=== PATIENT | female | born 1970 | race Caucasian/White ===

== ENCOUNTER 2017-01-25 23:42 | Emergency (ER) | payer MEDICARE, OTHER ==
[~2017-01-25 23:42] MED LIST: APRESOLINE100 MG PO; INSULIN LISPRO; LEVOTHYROXINE112 MCG PO; LEXAPRO20 MG PO; NEURONTIN300 M1 PO; PROTONIX 40MG T40 MG PO; ZOCOR40 MG PO
== END 2017-01-26 00:25 | disposition home or self-care (01) ==
LOC: FER 23:42
DX: E10.65 Type 1 diabetes mellitus with hyperglycemia (principal); E10.22 Type 1 diabetes mellitus with diabetic chronic kidney disease; I13.10 Hypertensive heart and chronic kidney disease without heart failure, with stage 1 through stage 4 chronic kidney disease, or unspecified chronic kidney disease; N18.9 Chronic kidney disease, unspecified; Z88.1 Allergy status to other antibiotic agents; Z88.5 Allergy status to narcotic agent; Z79.899 Other long term (current) drug therapy; Z99.2 Dependence on renal dialysis; Z96.41 Presence of insulin pump (external) (internal)

== ENCOUNTER 2017-01-30 23:45 | Emergency (ER) | payer MEDICARE, OTHER ==
[2017-01-31 00:39] LABS: BASOPHIL 1.8 % (0-2); EOSINOPHIL 9.1 % (0-5); HCT 38.3 % (37.0-47.0); HGB 12.6 g/dl (12.5-16.0); LYMPHOCYTE 17.1 % (15-48); MCH 26.9 pg (25.0-31.0); MCHC 32.9 g/dL (32.0-36.0); MCV 81.7 fL (78.0-100.0); MONOCYTE 7.8 % (0-12); MPV 8.7 fL (6.0-9.5); NEUTROPHIL 64.2 % (41-80); PLT 199 K/uL (150-400); RBC 4.69 M/uL (4.20-5.40); RDW 17.4 % (11.5-14.0); WBC 6.3 K/uL (4.0-10.5)
[2017-01-31 00:49] LABS: INR 0.96 (0.9-1.2); PROTHROMBIN TIME 12.4 SECONDS (11.7-14.0)
[2017-01-31 00:50] LABS: PTT 32.6 SECONDS (23.2-31.4)
[2017-01-31 00:57] LABS: ALBUMIN 4.3 g/dL (3.5-5.0); BILIRUBIN - TOTAL 0.4 mg/dL (0.1-1.0); CREATININE 4.8 mg/dL (0.5-1.0); GLOBULIN (CALCULATION) 2.7 g/dL (2.2-4.2); MAGNESIUM 2.56 mg/dL (1.40-2.10); POTASSIUM 4.7 mmol/L (3.5-5.1)
[2017-01-31 01:03] LABS: MYOGLOBIN 245 ng/mL (26-65); TROPONIN T 0.011 ng/mL
[2017-01-31 01:05] LABS: AMPHETAMINES NEGATIVE (NEGATIVE); BARBITURATES NEGATIVE (NEGATIVE); BENZODIAZEPINES NEGATIVE (NEGATIVE); COCAINE NEGATIVE (NEGATIVE); MARIJUANA (THC) POSITIVE (NEGATIVE); METHADONE NEGATIVE (NEGATIVE); TRICYCLIC ANTIDEPRESSANT NEGATIVE (NEGATIVE)
[2017-01-31 01:08] LABS: CKMB 5.41 ng/mL (0.97-4.94); PRO-BNP > 35000 pg/mL (0-125)
[2017-01-31 06:51] LABS: CREATININE 5.1 mg/dL (0.5-1.0); POTASSIUM 4.9 mmol/L (3.5-5.1)
== END 2017-01-31 07:41 | disposition home or self-care (01) ==
LOC: FER 23:45
PROVIDERS: Emergency Medicine Emergency Medical Services
DX: E10.43 Type 1 diabetes mellitus with diabetic autonomic (poly)neuropathy (principal); K31.84 Gastroparesis; I44.7 Left bundle-branch block, unspecified; E86.9 Volume depletion, unspecified; E10.22 Type 1 diabetes mellitus with diabetic chronic kidney disease; I12.9 Hypertensive chronic kidney disease with stage 1 through stage 4 chronic kidney disease, or unspecified chronic kidney disease; N18.9 Chronic kidney disease, unspecified; I25.2 Old myocardial infarction; Z88.1 Allergy status to other antibiotic agents; Z88.5 Allergy status to narcotic agent; Z97.8 Presence of other specified devices; Z99.2 Dependence on renal dialysis
CPT/HCPCS: 36415; 71010; 80048; 80053; 80305; 82550; 82553; 83690; 83735; 83874; 83880; 84484; 85025; 85610; 85730; 93005; J1170; J2060

== ENCOUNTER 2017-05-27 17:32 | Emergency (ER) | payer MEDICARE, OTHER ==
[2017-05-27 18:17] LABS: BASOPHIL 0.1 % (0-2); EOSINOPHIL 0 % (0-5); HCT 43.5 % (37.0-47.0); HGB 13.7 g/dl (12.5-16.0); LYMPHOCYTE 6.2 % (15-48); MCH 27.5 pg (25.0-31.0); MCHC 31.5 g/dL (32.0-36.0); MCV 87.2 fL (78.0-100.0); MONOCYTE 6.7 % (0-12); MPV 11.2 fL (6.0-9.5); PLT 190 K/uL (150-400); RBC 4.99 M/uL (4.20-5.40); WBC 12.7 K/uL (4.0-10.5)
[2017-05-27 19:00] LABS: ALBUMIN 4.5 g/dL (3.5-5.0); BILIRUBIN - TOTAL 0.5 mg/dL (0.1-1.0); GLOBULIN (CALCULATION) 3.1 g/dL (2.2-4.2); POTASSIUM 5.5 mmol/L (3.5-5.1); TOTAL PROTEIN 7.6 g/dL (6.4-8.3)
[2017-05-27 19:21] LABS: INR 1.14 (0.9-1.2); PROTHROMBIN TIME 13.7 SECONDS (11.4-13.2); PTT 27.9 SECONDS (24.3-32.1)
[2017-05-27 20:14] LABS: BILIRUBIN NEGATIVE (NEGATIVE); BLOOD 2+ Ery/uL (NEGATIVE); CLARITY CLEAR (CLEAR); COLOR YELLOW (YELLOW); GLUCOSE (U) 3+ mg/dL (NORMAL); KETONE (U) 1+ (SMALL) mg/dL (NEGATIVE); LEUKOCYTES NEGATIVE Leu/uL (NEGATIVE); NITRITE NEGATIVE (NEGATIVE); PROTEIN 2+ mg/dL (NEGATIVE); SPECIFIC GRAVITY 1.015 (1.001-1.030); UROBILINOGEN 0.2 mg/dL (0.2-1.0); pH 7.5 (5.0-9.0)
[2017-05-27 20:21] LABS: BACTERIA TRACE
[2017-05-28 04:35] LABS: CREATININE 7.1 mg/dL (0.5-1.0); POTASSIUM 4.9 mmol/L (3.5-5.1)
== END 2017-05-28 06:47 | disposition other institution (70) ==
LOC: FER 17:32
PROVIDERS: Emergency Medicine
DX: K92.0 Hematemesis (principal); E72.51 Non-ketotic hyperglycinemia; R42 Dizziness and giddiness; M54.9 Dorsalgia, unspecified; F41.9 Anxiety disorder, unspecified; I12.9 Hypertensive chronic kidney disease with stage 1 through stage 4 chronic kidney disease, or unspecified chronic kidney disease; E10.22 Type 1 diabetes mellitus with diabetic chronic kidney disease; N18.9 Chronic kidney disease, unspecified; Z79.4 Long term (current) use of insulin; Z79.899 Other long term (current) drug therapy
CPT/HCPCS: 36415; 36600; 74022; 80048; 80053; 81001; 82271; 82803; 85025; 85610; 85730; C9113; J1170; J2405

== ENCOUNTER 2020-10-09 10:14 | Day surgery (SDCO) | payer MEDICARE, OTHER ==
[~2020-10-09] VITALS: Ht 172.7 cm; Wt 93.9 kg
[~2020-10-09 10:14] MED LIST changes: +APREPITANT PO; +ATIVAN1 MG PO; +BACLOFEN 10MG T10 MG PO; +BUMEX1 MG PO; +CLEOCIN300 MG PO; +COREG 3.125M3.125 MG PO; +DILANTIN100 MG PO; +DILAUDID2 MG PO; +DILAUDID4 MG PO; +DULCOLAX5 MG PO; +ELIQUIS5 MG PO; +EMEND40 MG PO; +HUMULIN R100 UNIT/1 SQ; +IMITREX50 MG PO; +K-DUR20 MEQ PO; +LOPRESSOR25 MG PO; +METOCLOPRAMIDE H5 M1 PO; +METOLAZONE10 MG PO; +MIRALAX 238GM238 GM PO; +MIRALAX17 G1 PO; +NARCAN4 MG; +NEURONTIN300 MG PO; +NORCO 5/3251 EACH PO; +NOVOLOG VI100 UNIT/1 SQ; +ONDANSETRON ODT4 MG PO; +PANTOPRAZOLE SO40 MG PO; +PHENERGAN25 M1 IV; +PHENERGAN25 MG/1 M1 IV; +PHENERGAN25 MG/1 ML IV; +PROMETHAZINE25 MG/ML IM/IV; +REGLAN10 M1 PO; +REGLAN10 MG PO; +RENAGEL800 MG PO; +REQUIP0.25 MG PO; +SIMVASTATIN40 MG PO; +SYNTHROID112 MCG PO; +TRANSDERM-SCOP1 EACH TD; +VANCOMYCIN1000 M1 HE; +VIMPAT100 MG PO; +ZOCOR40 M1 PO; +ZOFRAN4 MG IV; +ZOFRAN8 MG IV; +ZOFRAN8 MG PO; +ZOLOFT50 MG PO
[2020-10-09 10:53] LABS: BASOPHIL 1.8 % (0-2); EOSINOPHIL 0.7 % (0-5); HCT 42.1 % (37.0-47.0); HGB 12.8 g/dl (12.5-16.0); LYMPHOCYTE 20.5 % (15-48); MCH 29.2 pg (25.0-31.0); MCHC 30.4 g/dL (32.0-36.0); MCV 95.9 fL (78.0-100.0); MONOCYTE 6.2 % (0-12); NEUTROPHIL 69.7 % (41-80); NRBC 0; PLT 157 K/uL (150-400); RBC 4.39 M/uL (4.20-5.40); RDW 18.1 % (11.5-14.0); WBC 4.5 K/uL (4.0-10.5)
[2020-10-09 12:35] LABS: BILIRUBIN - TOTAL 0.4 mg/dL (0.2-1.0); CREATININE 4.63 mg/dL (0.51-0.95); GLOBULIN (CALCULATION) 3.4 g/dL; POTASSIUM 6.3 mmol/L (3.5-5.1); TOTAL PROTEIN 6.4 g/dL (6.4-8.2)
[2020-10-10 08:48] LABS: HCT 37.5 % (37.0-47.0); HGB 11.5 g/dl (12.5-16.0); MCH 28.8 pg (25.0-31.0); MCHC 30.7 g/dL (32.0-36.0); MCV 93.8 fL (78.0-100.0); MPV 9.7 fL (6.0-9.5); WBC 4.9 K/uL (4.0-10.5)
[2020-10-10 09:08] LABS: CREATININE 2.78 mg/dL (0.51-0.95); POTASSIUM 5.3 mmol/L (3.5-5.1)
--- NOTE | 2020-10-10 14:56 | NUR ---
ATTEMPT MADE TO MAKE PT APPOINTMENT WITH PCP DR JOSEPH BUT COULD NOT REACH ANYONE.
== END 2020-10-10 14:44 | disposition home or self-care (01) ==
LOC: FER 10:14 → FTCU 15:07
PROVIDERS: Emergency Medicine; ADMIT Internal Medicine
DX: U07.1 COVID-19 (principal); E10.649 Type 1 diabetes mellitus with hypoglycemia without coma; E87.5 Hyperkalemia; E10.40 Type 1 diabetes mellitus with diabetic neuropathy, unspecified; E10.43 Type 1 diabetes mellitus with diabetic autonomic (poly)neuropathy; K31.84 Gastroparesis; I12.0 Hypertensive chronic kidney disease with stage 5 chronic kidney disease or end stage renal disease; E10.22 Type 1 diabetes mellitus with diabetic chronic kidney disease; N18.6 End stage renal disease; I25.10 Atherosclerotic heart disease of native coronary artery without angina pectoris; E78.5 Hyperlipidemia, unspecified; K21.9 Gastro-esophageal reflux disease without esophagitis; F32.9 Major depressive disorder, single episode, unspecified; F41.9 Anxiety disorder, unspecified; E03.9 Hypothyroidism, unspecified; E83.39 Other disorders of phosphorus metabolism; Z86.14 Personal history of Methicillin resistant Staphylococcus aureus infection; Z86.711 Personal history of pulmonary embolism; Z86.718 Personal history of other venous thrombosis and embolism; Z86.73 Personal history of transient ischemic attack (TIA), and cerebral infarction without residual deficits; Z79.01 Long term (current) use of anticoagulants; Z79.899 Other long term (current) drug therapy; Z88.1 Allergy status to other antibiotic agents; Z88.5 Allergy status to narcotic agent; Z99.2 Dependence on renal dialysis; Z96.41 Presence of insulin pump (external) (internal)
CPT/HCPCS: 36415; 80048; 80053; 82962; 83735; 85025; 93005; G0257; G0378; J0610; J1170; J2550; J2997; U0002

== ENCOUNTER 2020-10-26 13:30 | Inpatient (IN) | payer MEDICARE, OTHER ==
[~2020-10-26] VITALS: Ht 172.7 cm; Wt 85.0 kg
[2020-10-26 16:06] LABS: BASOPHIL 0.6 % (0-2); EOSINOPHIL 0.1 % (0-5); HCT 44.7 % (37.0-47.0); HGB 14.1 g/dl (12.5-16.0); LYMPHOCYTE 11.5 % (15-48); MCH 28.7 pg (25.0-31.0); MCHC 31.5 g/dL (32.0-36.0); MONOCYTE 8.3 % (0-12); MPV 10.2 fL (6.0-9.5); NRBC 0; PLT 213 K/uL (150-400); RBC 4.91 M/uL (4.20-5.40); RDW 17.1 % (11.5-14.0); WBC 13.9 K/uL (4.0-10.5)
[2020-10-26 16:21] LABS: ALBUMIN 3.5 g/dL (3.4-5.0); BILIRUBIN - TOTAL 0.5 mg/dL (0.2-1.0); BUN/CREAT RATIO (CALC) 8.3 RATIO; CREATININE 7.45 mg/dL (0.51-0.95); GLOBULIN (CALCULATION) 4.3 g/dL; POTASSIUM 4.9 mmol/L (3.5-5.1); TOTAL PROTEIN 7.8 g/dL (6.4-8.2)
[2020-10-26 16:27] LABS: LACTIC ACID 2.1 mmol/L (0.4-1.9)
[2020-10-27 06:04] LABS: BASOPHIL 0.6 % (0-2); EOSINOPHIL 0.4 % (0-5); HCT 42.5 % (37.0-47.0); HGB 13.3 g/dl (12.5-16.0); LYMPHOCYTE 11.8 % (15-48); MCH 28.5 pg (25.0-31.0); MCHC 31.3 g/dL (32.0-36.0); MONOCYTE 7.9 % (0-12); MPV 10.9 fL (6.0-9.5); NEUTROPHIL 78.9 % (41-80); NRBC 0; PLT 182 K/uL (150-400); RBC 4.67 M/uL (4.20-5.40); WBC 10.5 K/uL (4.0-10.5)
[2020-10-27 06:36] LABS: BUN/CREAT RATIO (CALC) 9.4 RATIO; CREATININE 8.37 mg/dL (0.51-0.95); PHOSPHORUS 10.7 mg/dL (2.6-4.7); POTASSIUM 5.3 mmol/L (3.5-5.1)
[2020-10-27 19:07] LABS: BASOPHIL 0.9 % (0-2); EOSINOPHIL 0.1 % (0-5); HCT 46.8 % (37.0-47.0); HGB 14.6 g/dl (12.5-16.0); LYMPHOCYTE 11.6 % (15-48); MCH 29.2 pg (25.0-31.0); MCHC 31.2 g/dL (32.0-36.0); MCV 93.6 fL (78.0-100.0); MONOCYTE 9.3 % (0-12); NEUTROPHIL 76.3 % (41-80); NRBC 0; PLT 208 K/uL (150-400); RDW 17.2 % (11.5-14.0); WBC 9.8 K/uL (4.0-10.5)
[2020-10-27 19:22] LABS: CREATININE 4.9 mg/dL (0.51-0.95); POTASSIUM 4.1 mmol/L (3.5-5.1)
[2020-10-29 03:23] LABS: BASOPHIL 0.6 % (0-2); EOSINOPHIL 0 % (0-5); HCT 41.7 % (37.0-47.0); HGB 13.2 g/dl (12.5-16.0); LYMPHOCYTE 14.3 % (15-48); MCH 28.9 pg (25.0-31.0); MCHC 31.7 g/dL (32.0-36.0); MCV 91.2 fL (78.0-100.0); MONOCYTE 12.1 % (0-12); MPV 11.2 fL (6.0-9.5); NEUTROPHIL 71.5 % (41-80); NRBC 0; PLT 196 K/uL (150-400); RBC 4.57 M/uL (4.20-5.40); RDW 16.7 % (11.5-14.0); WBC 9.5 K/uL (4.0-10.5)
[2020-10-29 04:19] LABS: POTASSIUM 5.4 mmol/L (3.5-5.1)
[2020-10-29 04:21] LABS: CREATININE 7.86 mg/dL (0.51-0.95)
[2020-10-30 04:13] LABS: BASOPHIL 0.6 % (0-2); EOSINOPHIL 0.6 % (0-5); HCT 39.8 % (37.0-47.0); HGB 12.9 g/dl (12.5-16.0); LYMPHOCYTE 17.2 % (15-48); MCH 28.8 pg (25.0-31.0); MCHC 32.4 g/dL (32.0-36.0); MCV 88.8 fL (78.0-100.0); MONOCYTE 11.9 % (0-12); MPV 11.5 fL (6.0-9.5); NEUTROPHIL 69.1 % (41-80); NRBC 0; PLT 182 K/uL (150-400); RBC 4.48 M/uL (4.20-5.40); RDW 16.2 % (11.5-14.0)
[2020-10-30 04:57] LABS: CREATININE 9.32 mg/dL (0.51-0.95); POTASSIUM 6.1 mmol/L (3.5-5.1)
[2020-10-30 04:58] LABS: ALBUMIN 3.1 g/dL (3.4-5.0); PHOSPHORUS 10.8 mg/dL (2.6-4.7)
[2020-10-30 14:15] LABS: ALBUMIN 3.2 g/dL (3.4-5.0); CREATININE 5.36 mg/dL (0.51-0.95); PHOSPHORUS 7.6 mg/dL (2.6-4.7)
[2020-10-30 14:18] LABS: POTASSIUM 4.5 mmol/L (3.5-5.1)
[2020-10-30 20:44] LABS: BILIRUBIN NEGATIVE (NEGATIVE); BLOOD NEGATIVE Ery/uL (NEGATIVE); CLARITY CLEAR (CLEAR); COLOR RED (YELLOW); GLUCOSE (U) 3+ mg/dL (NORMAL); LEUKOCYTES NEGATIVE Leu/uL (NEGATIVE); NITRITE NEGATIVE (NEGATIVE); PROTEIN 2+ mg/dL (NEGATIVE); SPECIFIC GRAVITY 1.015 (1.001-1.030); UROBILINOGEN 0.2 mg/dL (0.2-1.0)
[2020-10-30 20:51] LABS: BACTERIA TRACE; YEAST PRESENT
[2020-10-31 05:41] LABS: BASOPHIL 0.7 % (0-2); EOSINOPHIL 2.7 % (0-5); HCT 38.6 % (37.0-47.0); HGB 12.3 g/dl (12.5-16.0); LYMPHOCYTE 20.6 % (15-48); MCH 28.8 pg (25.0-31.0); MCHC 31.9 g/dL (32.0-36.0); MCV 90.4 fL (78.0-100.0); MONOCYTE 14.2 % (0-12); MPV 11.5 fL (6.0-9.5); NEUTROPHIL 61.4 % (41-80); NRBC 0; PLT 185 K/uL (150-400); RBC 4.27 M/uL (4.20-5.40); RDW 16.2 % (11.5-14.0)
[2020-10-31 06:27] LABS: ALBUMIN 2.8 g/dL (3.4-5.0); BUN/CREAT RATIO (CALC) 8.9 RATIO; CREATININE 6.73 mg/dL (0.51-0.95); PHOSPHORUS 8.4 mg/dL (2.6-4.7); POTASSIUM 4.3 mmol/L (3.5-5.1)
[2020-10-31 09:09] LABS: HBSAG SCREEN Negative (Negative)
== END 2020-10-31 10:35 | disposition home or self-care (01) | DRG 73 ==
LOC: FER 13:30 → FMS 16:55
PROVIDERS: Allergy & Immunology Allergy; Emergency Medicine; Internal Medicine Nephrology; ADMIT Internal Medicine
PROC: 5A1D70Z Performance of Urinary Filtration, Intermittent, Less than 6 Hours Per Day (ICD-10-PCS; principal; 2020-10-30)
DX: E10.43 Type 1 diabetes mellitus with diabetic autonomic (poly)neuropathy (principal); N18.6 End stage renal disease; E87.1 Hypo-osmolality and hyponatremia; I12.0 Hypertensive chronic kidney disease with stage 5 chronic kidney disease or end stage renal disease; K31.84 Gastroparesis; E87.5 Hyperkalemia; I25.10 Atherosclerotic heart disease of native coronary artery without angina pectoris; E78.5 Hyperlipidemia, unspecified; K21.9 Gastro-esophageal reflux disease without esophagitis; F32.9 Major depressive disorder, single episode, unspecified; F41.9 Anxiety disorder, unspecified; E03.9 Hypothyroidism, unspecified; Z86.73 Personal history of transient ischemic attack (TIA), and cerebral infarction without residual deficits; Z86.718 Personal history of other venous thrombosis and embolism; Z99.2 Dependence on renal dialysis; Z86.711 Personal history of pulmonary embolism; Z79.01 Long term (current) use of anticoagulants; Z98.890 Other specified postprocedural states; Z88.6 Allergy status to analgesic agent
CPT/HCPCS: 36415; 74018; 74022; 80048; 80053; 80069; 81001; 82009; 82962; 83605; 83690; 84100; 85025; 87040; 87088; 87340; 93005; C9113; G0378; J0610; J1170; J1644; J2405; J2550; J2997; J7030

== ENCOUNTER 2020-12-03 08:34 | Inpatient (IN) | payer MEDICARE, OTHER ==
[2020-12-03 09:54] LABS: EOSINOPHIL 0.1 % (0-5); HCT 32.6 % (37.0-47.0); HGB 10.4 g/dl (12.5-16.0); LYMPHOCYTE 8.3 % (15-48); MCH 29.6 pg (25.0-31.0); MCHC 31.9 g/dL (32.0-36.0); MCV 92.9 fL (78.0-100.0); MONOCYTE 3.5 % (0-12); MPV 10.5 fL (6.0-9.5); NEUTROPHIL 86.7 % (41-80); NRBC 0; PLT 247 K/uL (150-400); RBC 3.51 M/uL (4.20-5.40); RDW 15.5 % (11.5-14.0); WBC 9.1 K/uL (4.0-10.5)
[2020-12-03 10:05] LABS: INR 1.03 (0.9-1.2); PROTHROMBIN TIME 12.8 SECONDS (11.4-13.6)
[2020-12-03 10:21] LABS: LACTIC ACID 1.7 mmol/L (0.4-1.9)
[2020-12-03 10:23] LABS: BILIRUBIN - TOTAL 0.7 mg/dL (0.2-1.0); CREATININE 8.4 mg/dL (0.51-0.95); GLOBULIN (CALCULATION) 3.9 g/dL; TOTAL PROTEIN 6.9 g/dL (6.4-8.2)
[2020-12-03 10:26] LABS: POTASSIUM 6.9 mmol/L (3.5-5.1)
[2020-12-03 16:37] LABS: CREATININE 8.61 mg/dL (0.51-0.95); POTASSIUM 6.2 mmol/L (3.5-5.1)
[2020-12-04 00:56] LABS: CREATININE 8.89 mg/dL (0.51-0.95); POTASSIUM 6.5 mmol/L (3.5-5.1)
--- NOTE | 2020-12-04 02:39 | NUR ---
12/03/20 RN RECIEVED REPORT FROM JOSÉ ANTONIO LALA, DAYSGARRISON RN INFORMED NIGHTSGARRISON RN THAT DIALYSIS WAS TO BE GIVEN TO PATIENT THAT EVENING FROM [facility], RN LOOKED AT LABS ORDERS AND H&P WHICH NOTED KEISHA ORDERED STAT DIALYSIS, [facility] CALLED TO INQUIRE ABOUT PT'S DIALYSIS, THEY STATED THEY DID NOT HAVE STAT ORDERS AND WERE COMING 12/04/20 AT 0600 FOR DIALYSIS. RN CONSULTED KEISHA IN REGARDS TO CLARIFICATION OF ORDERS AND WHEN HE WANTED DIALYSIS TO BE GIVEN, KEISHA STATED "COULD NOT CONTROL WHEN [facility] PROVIDED DIALYSIS" KEISHA REQUESTED REPEAT BASIC METABOLIC PANEL AND TO CONSULT HIM IF PATIENTS POTASSIUM WAS STILL GREATER THAN 6, BMP RESULTED PATIENTS POTASSIUM WAS 6.5, RN CONSULTED KEISHA AGAIN TO WHICH HE ORDERED 1T NOW IVP 50% DEXTROSE (50ML), 1T NOW 8 UNITS HUMULIN R IVP, AND 1T NOW KAYEXELATE 15G/60ML PO AND REPEAT LABS IN AM (12/04/20 0500)
[2020-12-04 05:48] LABS: HCT 31.3 % (37.0-47.0); HGB 9.8 g/dl (12.5-16.0); MCH 28.7 pg (25.0-31.0); MCHC 31.3 g/dL (32.0-36.0); MCV 91.5 fL (78.0-100.0); MPV 10.5 fL (6.0-9.5); RBC 3.42 M/uL (4.20-5.40); RDW 15.8 % (11.5-14.0); WBC 9.3 K/uL (4.0-10.5)
[2020-12-04 06:53] LABS: POTASSIUM 5.3 mmol/L (3.5-5.1)
--- NOTE | 2020-12-04 13:07 | NUR ---
DIALYSIS COMPLETED WITHOUT COMPLICATIONS. 2.7 KILOS REMOVED PER NURSE. NO DISTRESS NOTED.
--- NOTE | 2020-12-04 16:26 | NUR ---
12/04/20 Ms. Avery lives with her mother. She has dialysis 3 times per week. Ms. Song reports to have missed 2 dialysis treatments because they won't allow her to come to the CLinic when she is sick, although she believes the illness to be gastroparesis related.
--- NOTE | 2020-12-04 17:52 | NUR ---
MD AWARE PATIENT HAS HOME INSULIN PUMP IN USE WITH A BASAL RATE
[2020-12-05 05:39] LABS: HCT 29.5 % (37.0-47.0); HGB 8.9 g/dl (12.5-16.0); MCH 29.2 pg (25.0-31.0); MCHC 30.2 g/dL (32.0-36.0); MCV 96.7 fL (78.0-100.0); MPV 10.3 fL (6.0-9.5); RBC 3.05 M/uL (4.20-5.40); RDW 15.9 % (11.5-14.0); WBC 5.3 K/uL (4.0-10.5)
[2020-12-05 05:49] LABS: CREATININE 5.31 mg/dL (0.51-0.95); POTASSIUM 5.3 mmol/L (3.5-5.1)
--- NOTE | 2020-12-06 12:05 | NUR ---
PT DC'd HOME & TRANSPORTED FROM UNIT TO FACILITY EXIT VIA WHEELCHAIR W/ ALL PT BELONGINGS - PT STABLE W/ NO PAIN OR DISTRESS. PT PICKED UP VIA DAUGHTER IN PRIVATE VEHICLE.
== END 2020-12-06 12:01 | disposition home or self-care (01) | DRG 73 ==
LOC: FER 08:34 → FTCU 11:36
PROVIDERS: Emergency Medicine; Internal Medicine Nephrology; ADMIT Hospitalist
PROC: 5A1D70Z Performance of Urinary Filtration, Intermittent, Less than 6 Hours Per Day (ICD-10-PCS; 2020-12-04)
PROC: 5A1D70Z Performance of Urinary Filtration, Intermittent, Less than 6 Hours Per Day (ICD-10-PCS; principal; 2020-12-05)
DX: E10.43 Type 1 diabetes mellitus with diabetic autonomic (poly)neuropathy (principal); N18.6 End stage renal disease; I12.0 Hypertensive chronic kidney disease with stage 5 chronic kidney disease or end stage renal disease; K31.84 Gastroparesis; I25.10 Atherosclerotic heart disease of native coronary artery without angina pectoris; Z99.2 Dependence on renal dialysis; E10.22 Type 1 diabetes mellitus with diabetic chronic kidney disease; F32.9 Major depressive disorder, single episode, unspecified; F41.9 Anxiety disorder, unspecified; E03.9 Hypothyroidism, unspecified; Z20.822 Contact with and (suspected) exposure to COVID-19; E78.5 Hyperlipidemia, unspecified; K21.9 Gastro-esophageal reflux disease without esophagitis; E87.5 Hyperkalemia; G89.29 Other chronic pain; Z86.73 Personal history of transient ischemic attack (TIA), and cerebral infarction without residual deficits; Z86.711 Personal history of pulmonary embolism; Z86.718 Personal history of other venous thrombosis and embolism; Z98.890 Other specified postprocedural states; Z88.6 Allergy status to analgesic agent
CPT/HCPCS: 36415; 71045; 80048; 80053; 82962; 83605; 83690; 85025; 85610; 85730; 87040; 93005; J1170; J1644; J2405; J2550; J7030; U0002

== ENCOUNTER 2020-12-26 05:39 | Inpatient (IN) | payer MEDICARE, OTHER ==
[~2020-12-26] VITALS: Ht 172.7 cm; Wt 95.0 kg
[2020-12-26 06:30] LABS: BASOPHIL 1.7 % (0-2); EOSINOPHIL 5.3 % (0-5); HGB 9.1 g/dl (12.5-16.0); LYMPHOCYTE 29.1 % (15-48); MCH 30.2 pg (25.0-31.0); MCHC 30.3 g/dL (32.0-36.0); MCV 99.7 fL (78.0-100.0); MONOCYTE 11.4 % (0-12); MPV 10.2 fL (6.0-9.5); NEUTROPHIL 52.2 % (41-80); NRBC 0; PLT 213 K/uL (150-400); RBC 3.01 M/uL (4.20-5.40); RDW 18.1 % (11.5-14.0); WBC 5.9 K/uL (4.0-10.5)
[2020-12-26 06:46] LABS: ALBUMIN 2.8 g/dL (3.4-5.0); ALKALINE PHOSHATASE 795 U/L (46-116); ALT <6 U/L (14-59); AST 21 U/L (15-37); BILIRUBIN - TOTAL 0.5 mg/dL (0.2-1.0); BUN 54 mg/dL (7-18); BUN/CREAT RATIO (CALC) 10.7 RATIO; CHLORIDE 97 mmol/L (98-107); CO2 (BICARBONATE) 28 mmol/L (21-32); CREATININE 5.04 mg/dL (0.51-0.95); GLOBULIN (CALCULATION) 3.7 g/dL; GLUCOSE 58 mg/dL (74-106); POTASSIUM 6.3 mmol/L (3.5-5.1); TOTAL PROTEIN 6.5 g/dL (6.4-8.2)
[2020-12-26 06:49] LABS: LACTIC ACID 0.9 mmol/L (0.4-1.9)
[2020-12-26] MEDS ORDERED: GLUCAGON EMERGEN1 M1 IM (12:53)
[2020-12-27 05:06] LABS: BASOPHIL 1.5 % (0-2); EOSINOPHIL 6.8 % (0-5); HCT 26.9 % (37.0-47.0); HGB 8.3 g/dl (12.5-16.0); LYMPHOCYTE 35.6 % (15-48); MCH 30.7 pg (25.0-31.0); MCHC 30.9 g/dL (32.0-36.0); MCV 99.6 fL (78.0-100.0); MONOCYTE 11.7 % (0-12); MPV 10.3 fL (6.0-9.5); NRBC 0; PLT 199 K/uL (150-400); RDW 18.1 % (11.5-14.0); WBC 5.3 K/uL (4.0-10.5)
[2020-12-27 06:34] LABS: BUN/CREAT RATIO (CALC) 10.7 RATIO; CREATININE 6.34 mg/dL (0.51-0.95); POTASSIUM 6.1 mmol/L (3.5-5.1)
--- NOTE | 2020-12-27 14:17 | NUR ---
PT. TO D/C HOME AFTER DIAYLSIS. PLEASE ADVISE OF ANY D/C NEEDS.
[2020-12-27 17:59] LABS: CREATININE 4.06 mg/dL (0.51-0.95)
[2020-12-28 07:11] LABS: HBSAG SCREEN Negative (Negative)
== END 2020-12-27 17:30 | disposition home or self-care (01) | DRG 638 ==
LOC: FER 05:39 → FTCU 08:09
PROVIDERS: Emergency Medicine Emergency Medical Services; Internal Medicine Nephrology; ADMIT Allergy & Immunology Allergy
PROC: 5A1D70Z Performance of Urinary Filtration, Intermittent, Less than 6 Hours Per Day (ICD-10-PCS; principal; 2020-12-27)
DX: E10.649 Type 1 diabetes mellitus with hypoglycemia without coma (principal); F11.20 Opioid dependence, uncomplicated; I12.0 Hypertensive chronic kidney disease with stage 5 chronic kidney disease or end stage renal disease; E87.5 Hyperkalemia; N18.6 End stage renal disease; G89.29 Other chronic pain; E10.22 Type 1 diabetes mellitus with diabetic chronic kidney disease; E10.43 Type 1 diabetes mellitus with diabetic autonomic (poly)neuropathy; K31.84 Gastroparesis; M79.7 Fibromyalgia; I25.10 Atherosclerotic heart disease of native coronary artery without angina pectoris; E78.5 Hyperlipidemia, unspecified; Z20.822 Contact with and (suspected) exposure to COVID-19; K21.9 Gastro-esophageal reflux disease without esophagitis; F32.9 Major depressive disorder, single episode, unspecified; F41.9 Anxiety disorder, unspecified; E03.9 Hypothyroidism, unspecified; R77.8 Other specified abnormalities of plasma proteins; Z99.2 Dependence on renal dialysis; Z76.5 Malingerer [conscious simulation]; Z79.899 Other long term (current) drug therapy; Z79.01 Long term (current) use of anticoagulants; Z86.73 Personal history of transient ischemic attack (TIA), and cerebral infarction without residual deficits; Z88.6 Allergy status to analgesic agent
CPT/HCPCS: 36415; 80048; 80053; 82009; 82962; 83605; 84145; 84484; 85025; 87340; J0610; J1170; J1644; J2405; J2550; J7030

== ENCOUNTER 2021-01-06 12:44 | Inpatient (IN) | payer MEDICARE, OTHER ==
[~2021-01-06 12:44] MED LIST changes: +GLUCAGON EMERGEN1 M1 IM
[2021-01-06 14:16] LABS: ALBUMIN 3.3 g/dL (3.4-5.0); BILIRUBIN - TOTAL 0.6 mg/dL (0.2-1.0); BUN/CREAT RATIO (CALC) 4.2 RATIO; CREATININE 5.28 mg/dL (0.51-0.95); GLOBULIN (CALCULATION) 3.6 g/dL; TOTAL PROTEIN 6.9 g/dL (6.4-8.2)
[2021-01-06 14:59] LABS: BASOPHIL 1.8 % (0-2); EOSINOPHIL 3.1 % (0-5); HCT 32.4 % (37.0-47.0); HGB 9.9 g/dl (12.5-16.0); LYMPHOCYTE 23.6 % (15-48); MCH 30.7 pg (25.0-31.0); MCHC 30.6 g/dL (32.0-36.0); MCV 100.6 fL (78.0-100.0); MONOCYTE 9.3 % (0-12); MPV 10.5 fL (6.0-9.5); NEUTROPHIL 61.8 % (41-80); NRBC 0; PLT 234 K/uL (150-400); RBC 3.22 M/uL (4.20-5.40); RDW 16.6 % (11.5-14.0); WBC 4.5 K/uL (4.0-10.5)
[2021-01-06] MEDS ORDERED: APREPITANT PO (19:55)
[2021-01-06] MEDS ORDERED: ELIQUIS5 MG PO (19:55)
[2021-01-06] MEDS ORDERED: BUMEX1 MG PO (19:56)
[2021-01-06] MEDS ORDERED: NEURONTIN300 MG PO (19:56)
[2021-01-06] MEDS ORDERED: COREG 3.125M3.125 MG PO (19:56)
[2021-01-06] MEDS ORDERED: DULCOLAX5 M1 PO (19:57)
[2021-01-06] MEDS ORDERED: NOVOLOG VI100 UNIT/1 IJ (19:58)
[2021-01-06] MEDS ORDERED: SYNTHROID112 MCG PO (19:59)
[2021-01-06] MEDS ORDERED: ZOFRAN4 M1 PO (20:00)
[2021-01-06] MEDS ORDERED: PROTONIX 40MG T40 MG PO (20:00)
[2021-01-06] MEDS ORDERED: ZOLOFT50 MG PO (20:01)
[2021-01-06] MEDS ORDERED: TRANSDERM-SCOP1 EACH TD (20:01)
[2021-01-06] MEDS ORDERED: REQUIP0.25 MG PO (20:01)
[2021-01-06] MEDS ORDERED: IMITREX50 MG PO (20:02)
[2021-01-06] MEDS ORDERED: DILAUDID2 MG PO (20:05)
--- NOTE | 2021-01-06 21:55 | NUR ---
AROUND 2029 PT BECAME TACHY WITH HR REACHING INTO THE 130'S, PTS BP 187/105. HOSPITIALIST JEISON NOTIFIED. ORDER RECEIVED FOR 1X LOPRESSOR IV PUSH 5MG. LOPRESSOR GIVEN TO PT. PT'S HR CURRENTLY SR 95.
--- NOTE | 2021-01-06 23:37 | NUR ---
AT 2300 DR. VALDES CALLED IN DIALYSIS ORDERS FOR PT. ORDER CALLED INTO [email or web address] AND FAXED OVER. ORDERS PLACED ON CHART. PT BP 203/106 NEW ORDER RECEIVED FOR 1X LOPRESSOR. IF BP STILL UP AFTER 30MINS ADMINISTER PTS COREG. [facility] CALLED, PT ORDERED HEPARIN AND ELIQUIS BY HOSPITIALIST JEISON. CAN NOT ORDER BOTH, HEPARIN DC'ED.
[2021-01-07 05:06] LABS: BASOPHIL 0.7 % (0-2); EOSINOPHIL 0 % (0-5); HCT 28.5 % (37.0-47.0); HGB 8.7 g/dl (12.5-16.0); LYMPHOCYTE 13.4 % (15-48); MCH 30.9 pg (25.0-31.0); MCHC 30.5 g/dL (32.0-36.0); MCV 101.1 fL (78.0-100.0); MONOCYTE 8.5 % (0-12); MPV 10.2 fL (6.0-9.5); NRBC 0; PLT 207 K/uL (150-400); RBC 2.82 M/uL (4.20-5.40); RDW 16.6 % (11.5-14.0); WBC 7.5 K/uL (4.0-10.5)
[2021-01-07 05:24] LABS: BUN/CREAT RATIO (CALC) 5.2 RATIO; CREATININE 6.36 mg/dL (0.51-0.95); POTASSIUM 5.3 mmol/L (3.5-5.1)
--- NOTE | 2021-01-08 03:36 | NUR ---
UPON ARRIVAL TO PTS ROOM, PT ROCKING BACK AND FORTH IN BED. PT STATED SHE IS MISERABLE. PT VOMITING DARK BROWN EMESIS. PRN DILAUDID AND PHENERGAN IV GIVEN. PTS BLOOD PRESSURE 241/112. HOSPITALIST JEISON VOGT NOTIFIED. ORDER RECEIVED FOR IVP LOPRESSOR.
[2021-01-08 11:53] LABS: BUN/CREAT RATIO (CALC) 4.8 RATIO; CREATININE 4.63 mg/dL (0.51-0.95); POTASSIUM 4.9 mmol/L (3.5-5.1)
[2021-01-09 04:42] LABS: HCT 34.2 % (37.0-47.0); HGB 10.6 g/dl (12.5-16.0); MCH 30.5 pg (25.0-31.0); MCV 98.6 fL (78.0-100.0); MPV 10.2 fL (6.0-9.5); RBC 3.47 M/uL (4.20-5.40); RDW 16.5 % (11.5-14.0); WBC 7.8 K/uL (4.0-10.5)
[2021-01-09 05:03] LABS: BUN/CREAT RATIO (CALC) 6.8 RATIO; CREATININE 5.91 mg/dL (0.51-0.95)
[2021-01-09 05:04] LABS: POTASSIUM 5.1 mmol/L (3.5-5.1)
--- NOTE | 2021-01-09 11:21 | NUR ---
CALLED [facility] TO MAKE SURE PATIENT WAS ON THE SCHEDULE TO HAVE INPATIENT DIALYSIS. SPOKE TO YVONNE AND ADVISED ORDERS WERE WRITTEN ON 01/06/21 FOR DIALYSIS ON THURSDAY, THURSDAY, THURSDAY. YVONNE STATED PATIENT WAS NOT ON THE SCHEDULE BUT WOULD BE ADDED NOW.
--- NOTE | 2021-01-09 15:03 | NUR ---
01/09/21 Ms. Song lives at home with her mother. She receives dialysis 3 times per week. Ms. Song has a cane. She is not followed by HH. - No discharge planning needs are anticipated.
--- NOTE | 2021-01-09 18:02 | NUR ---
THIS RN ATTEMPTED TO CONTACT [facility] TO AGAIN CONFIRM THAT PATIENT IS ON THE SCHEDULE TO RECEIVE DIALYSIS TODAY. CALLED ALL NUMBERS IN DIALYSIS [employer] AND NO ONE ANSWERED AND THERE WAS NO OPTION TO LEAVE A VOICEMAIL. SENT A FAX WITH DIALYSIS ORDERS ASKING THEM TO CONFIRM PATIENT WILL RECEIVE DIALYSIS. FAX SENT TO [phone]. PHONE NUMBERS CALLED WITH NO ANSWER AND NO VOICEMAIL WERE [phone], , EXT 3, AND . TEACHER AIDE CLERICAL, DAI IGLESIAS ALSO NOTIFIED.
--- NOTE | 2021-01-09 18:18 | NUR ---
AFTER SENDING FAX TO DIALYSIS NUMBER, RN RECEIVED PHONE CALL FROM MIRIAM, RECONSTRUCTIVE DENTIST RN FOR DIALYSIS. STATED HE WAS UNAWARE OF PATIENT NEEDING DIALYSIS BUT WOULD BE HERE LATER THIS EVENING. PER HIS REQUEST, FAXED PATIENT'S BMP RESULTS TO SAME FAX NUMBER. NOTIFIED SOFTWARE TEST DEVELOPER, DAI IGLESIAS THAT SITUATION HAS BEEN RESOLVED
[2021-01-10 05:50] LABS: CREATININE 2.16 mg/dL (0.51-0.95)
[2021-01-10 05:52] LABS: POTASSIUM 3.4 mmol/L (3.5-5.1)
--- NOTE | 2021-01-10 14:50 | NUR ---
1430-PATIENT REQUESTING A GRILLED CHEES SANDWICH AND TOMATO SOUP, NOTIFIED, DIET ADVANCED
== END 2021-01-10 16:52 | disposition home or self-care (01) | DRG 73 ==
LOC: FER 12:44 → FMS 17:56
PROVIDERS: Allergy & Immunology Allergy; Emergency Medicine; Internal Medicine Nephrology; ADMIT Internal Medicine
PROC: 5A1D70Z Performance of Urinary Filtration, Intermittent, Less than 6 Hours Per Day (ICD-10-PCS; principal; 2021-01-06)
DX: E10.43 Type 1 diabetes mellitus with diabetic autonomic (poly)neuropathy (principal); N18.6 End stage renal disease; I12.0 Hypertensive chronic kidney disease with stage 5 chronic kidney disease or end stage renal disease; F11.20 Opioid dependence, uncomplicated; K31.84 Gastroparesis; E10.22 Type 1 diabetes mellitus with diabetic chronic kidney disease; I25.10 Atherosclerotic heart disease of native coronary artery without angina pectoris; K21.9 Gastro-esophageal reflux disease without esophagitis; F32.9 Major depressive disorder, single episode, unspecified; F41.1 Generalized anxiety disorder; Z20.822 Contact with and (suspected) exposure to COVID-19; E03.9 Hypothyroidism, unspecified; E78.5 Hyperlipidemia, unspecified; Z86.73 Personal history of transient ischemic attack (TIA), and cerebral infarction without residual deficits; Z98.890 Other specified postprocedural states; Z99.2 Dependence on renal dialysis; Z95.828 Presence of other vascular implants and grafts; Z88.6 Allergy status to analgesic agent; Z79.01 Long term (current) use of anticoagulants; Z79.899 Other long term (current) drug therapy; Z86.711 Personal history of pulmonary embolism; Z86.718 Personal history of other venous thrombosis and embolism
CPT/HCPCS: 36415; 74022; 80048; 80053; 82553; 82962; 83690; 85025; 96372; C9113; G0378; J0360; J1170; J1644; J2405; J2550; J2997; J7030; U0002

== ENCOUNTER 2021-01-14 12:03 | Emergency (ER) | payer MEDICARE, OTHER ==
[~2021-01-14 12:03] MED LIST changes: +DULCOLAX5 M1 PO; +NOVOLOG VI100 UNIT/1 IJ; +ZOFRAN4 M1 PO
[2021-01-14 13:28] LABS: BASOPHIL 1.3 % (0-2); HCT 31.2 % (37.0-47.0); HGB 9.9 g/dl (12.5-16.0); LYMPHOCYTE 24.4 % (15-48); MCH 31.3 pg (25.0-31.0); MCHC 31.7 g/dL (32.0-36.0); MCV 98.7 fL (78.0-100.0); MONOCYTE 12.8 % (0-12); MPV 10.5 fL (6.0-9.5); NEUTROPHIL 54.9 % (41-80); NRBC 0; PLT 204 K/uL (150-400); RBC 3.16 M/uL (4.20-5.40); RDW 16.1 % (11.5-14.0); WBC 4.7 K/uL (4.0-10.5)
[2021-01-14 14:08] LABS: BUN/CREAT RATIO (CALC) 3.7 RATIO; CREATININE 2.41 mg/dL (0.51-0.95); POTASSIUM 3.6 mmol/L (3.5-5.1)
== END 2021-01-14 15:20 | disposition home or self-care (01) ==
LOC: FER 12:03
PROVIDERS: Nurse Practitioner Family
DX: I95.3 Hypotension of hemodialysis (principal); I10 Essential (primary) hypertension; Z86.73 Personal history of transient ischemic attack (TIA), and cerebral infarction without residual deficits; Z88.5 Allergy status to narcotic agent
CPT/HCPCS: 36415; 70450; 80048; 85025; 93005; J7040

== ENCOUNTER 2021-03-13 20:12 | Inpatient (IN) | payer MEDICARE, OTHER ==
[~2021-03-13] VITALS: Ht 172.7 cm; Wt 86.4 kg
[2021-03-13 21:34] LABS: BASOPHIL 0.6 % (0-2); EOSINOPHIL 0 % (0-5); HCT 33.4 % (37.0-47.0); HGB 10.9 g/dl (12.5-16.0); LYMPHOCYTE 7.8 % (15-48); MCH 31.1 pg (25.0-31.0); MCHC 32.6 g/dL (32.0-36.0); MCV 95.2 fL (78.0-100.0); MPV 10.3 fL (6.0-9.5); NEUTROPHIL 86.1 % (41-80); NRBC 0; PLT 196 K/uL (150-400); RBC 3.51 M/uL (4.20-5.40); RDW 14.1 % (11.5-14.0); WBC 13.1 K/uL (4.0-10.5)
[2021-03-13 21:55] LABS: LACTIC ACID 1.8 mmol/L (0.4-1.9)
[2021-03-13 21:58] LABS: ALBUMIN 3.3 g/dL (3.4-5.0); BILIRUBIN - TOTAL 0.7 mg/dL (0.2-1.0); BUN/CREAT RATIO (CALC) 8.4 RATIO; CREATININE 6.19 mg/dL (0.51-0.95); GLOBULIN (CALCULATION) 4.1 g/dL; MAGNESIUM 2.3 mg/dL (1.8-2.4); TOTAL PROTEIN 7.4 g/dL (6.4-8.2)
[2021-03-13 22:01] LABS: POTASSIUM 6.4 mmol/L (3.5-5.1)
[2021-03-14 07:03] LABS: BASOPHIL 0.7 % (0-2); EOSINOPHIL 0.7 % (0-5); HCT 31.6 % (37.0-47.0); HGB 10.2 g/dl (12.5-16.0); LYMPHOCYTE 13.8 % (15-48); MCH 30.4 pg (25.0-31.0); MCHC 32.3 g/dL (32.0-36.0); MCV 94.3 fL (78.0-100.0); MONOCYTE 7.6 % (0-12); MPV 10.1 fL (6.0-9.5); NEUTROPHIL 76.7 % (41-80); NRBC 0; PLT 211 K/uL (150-400); RBC 3.35 M/uL (4.20-5.40); RDW 14.1 % (11.5-14.0); WBC 10.7 K/uL (4.0-10.5)
[2021-03-14 07:08] LABS: INR 1.13 (0.9-1.2); PROTHROMBIN TIME 13.9 SECONDS (11.8-13.4); PTT 51.5 SECONDS (24.4-34.7)
[2021-03-14 07:29] LABS: ALBUMIN 3.1 g/dL (3.4-5.0); BILIRUBIN - TOTAL 0.7 mg/dL (0.2-1.0); BUN/CREAT RATIO (CALC) 7.5 RATIO; CREATININE 6.7 mg/dL (0.51-0.95); GLOBULIN (CALCULATION) 3.6 g/dL; MAGNESIUM 2.1 mg/dL (1.8-2.4); PHOSPHORUS 7.7 mg/dL (2.6-4.7); TOTAL PROTEIN 6.7 g/dL (6.4-8.2)
[2021-03-14 07:30] LABS: POTASSIUM 4.3 mmol/L (3.5-5.1)
[2021-03-15 06:17] LABS: BASOPHIL 1.1 % (0-2); EOSINOPHIL 0.9 % (0-5); HCT 34.7 % (37.0-47.0); HGB 11.2 g/dl (12.5-16.0); LYMPHOCYTE 17.6 % (15-48); MCH 30.6 pg (25.0-31.0); MCHC 32.3 g/dL (32.0-36.0); MCV 94.8 fL (78.0-100.0); MONOCYTE 8.5 % (0-12); NEUTROPHIL 71.3 % (41-80); PLT 175 K/uL (150-400); RBC 3.66 M/uL (4.20-5.40)
[2021-03-15 06:34] LABS: CREATININE 4.12 mg/dL (0.51-0.95); POTASSIUM 4.4 mmol/L (3.5-5.1)
[2021-03-15 06:59] LABS: EOSINOPHIL(M) 1 % (0-5); LYMPHOCYTE(M) 14 % (15-48); MONOCYTE(M) 10 % (0-12); NEUTROPHILS(M) 71 % (41-80); TOTAL CELL COUNT 100; VARIANT LYMPHOCYTE 4
[2021-03-15 07:00] LABS: NRBC 0; PLATELET ESTIMATE NORMAL; PLATELET MORPHOLOGY NORMAL
--- NOTE | 2021-03-15 11:08 | NUR ---
PATIENT REFUSED TO TAKE SEVERAL PO MEDICATIONS. IMPORTANT PO MEDS GIVEN WITH JUICE D/T SUGAR 61 WELL. REFUSES TO EAT WELL OR GET OOB
--- NOTE | 2021-03-16 08:58 | NUR ---
0858- REDUCTION FURNACE OPERATOR MAY RN AT BEDSIDE WITH PRIMARY RN TO GIVE CATHFLO TO PT.
--- NOTE | 2021-03-16 09:30 | NUR ---
0858- PT HAS DOUBLE LUMEN PICC IN RIGHT CHEST. PT HAS ORDER FOR CATHFLO TO BE ADMINISTERED IN BOTH LUMENS. CATHFLO MIXED WITH 2.2 ML STERILE WATER AND ADMINISTERED TO EACH LUMEN. 0928- PT LUMENS CHECKED AND PURPLE LUMEN HAS BLOOD RETURN AND PATENT. 10 ML BLOOD WITHDREW AND FLUSHED WITH 10ML NS. RED LUMEN DOES NOT HAVE BLOOD RETURN. 1002-RED LUMEN CHECKED AGAIN FOR BLOOD RETURN WITHOUT SUCCESS. LUMEN FLUSHED WITH 10 ML NS.
== END 2021-03-16 13:20 | disposition home or self-care (01) | DRG 73 ==
LOC: FER 20:12 → FTCU 03-14 02:29 → FMS 03-14 02:29 → FER 03-14 02:29 → FTCU 03-14 09:47
PROVIDERS: Emergency Medicine Emergency Medical Services; Internal Medicine Nephrology; Nurse Practitioner; ADMIT Internal Medicine
PROC: 5A1D70Z Performance of Urinary Filtration, Intermittent, Less than 6 Hours Per Day (ICD-10-PCS; principal; 2021-03-15)
PROC: 3E04317 Introduction of Other Thrombolytic into Central Vein, Percutaneous Approach (ICD-10-PCS; 2021-03-16)
DX: E10.43 Type 1 diabetes mellitus with diabetic autonomic (poly)neuropathy (principal); N18.6 End stage renal disease; F11.20 Opioid dependence, uncomplicated; E10.22 Type 1 diabetes mellitus with diabetic chronic kidney disease; K31.84 Gastroparesis; E87.5 Hyperkalemia; Z20.822 Contact with and (suspected) exposure to COVID-19; K21.9 Gastro-esophageal reflux disease without esophagitis; I10 Essential (primary) hypertension; I25.10 Atherosclerotic heart disease of native coronary artery without angina pectoris; E78.5 Hyperlipidemia, unspecified; F32.9 Major depressive disorder, single episode, unspecified; F41.1 Generalized anxiety disorder; G89.4 Chronic pain syndrome; E03.9 Hypothyroidism, unspecified; Z99.2 Dependence on renal dialysis; Z86.711 Personal history of pulmonary embolism; Z86.718 Personal history of other venous thrombosis and embolism; Z86.73 Personal history of transient ischemic attack (TIA), and cerebral infarction without residual deficits; Z88.6 Allergy status to analgesic agent; Z79.01 Long term (current) use of anticoagulants; Z79.890 Hormone replacement therapy; Z79.899 Other long term (current) drug therapy; Z98.890 Other specified postprocedural states; Z95.828 Presence of other vascular implants and grafts
CPT/HCPCS: 36415; 71045; 74018; 80048; 80053; 82962; 83605; 83690; 83735; 84100; 84145; 85025; 85610; 85730; 93005; 94010; 94760; C9113; G0257; G0378; J0360; J0610; J1170; J1200; J1644; J2060; J2550; J2997; J7030; Q0162; U0002

== ENCOUNTER 2021-04-08 04:46 | Emergency (ER) | payer MEDICARE, OTHER ==
[2021-04-08 04:59] LABS: BASOPHIL 0.8 % (0-2); EOSINOPHIL 0 % (0-5); HCT 30.4 % (37.0-47.0); HGB 9.5 g/dl (12.5-16.0); LYMPHOCYTE 12.2 % (15-48); MCH 30.6 pg (25.0-31.0); MCHC 31.3 g/dL (32.0-36.0); MCV 98.1 fL (78.0-100.0); MONOCYTE 4.6 % (0-12); MPV 10.4 fL (6.0-9.5); NRBC 0; PLT 212 K/uL (150-400); RDW 16.1 % (11.5-14.0); WBC 7.6 K/uL (4.0-10.5)
[2021-04-08 05:40] LABS: ALBUMIN 3.1 g/dL (3.4-5.0); BILIRUBIN - TOTAL 0.6 mg/dL (0.2-1.0); BUN/CREAT RATIO (CALC) 6.6 RATIO; CREATININE 7.82 mg/dL (0.51-0.95); GLOBULIN (CALCULATION) 3.4 g/dL; TOTAL PROTEIN 6.5 g/dL (6.4-8.2)
[2021-04-08 05:42] LABS: POTASSIUM 7.9 mmol/L (3.5-5.1)
[2021-04-08 10:34] LABS: BUN/CREAT RATIO (CALC) 6.4 RATIO; CREATININE 7.8 mg/dL (0.51-0.95)
[2021-04-08 10:38] LABS: POTASSIUM 6.6 mmol/L (3.5-5.1)
== END 2021-04-08 15:16 | disposition other institution (70) ==
LOC: FER 04:46
PROVIDERS: Emergency Medicine; Emergency Medicine Emergency Medical Services
DX: E11.65 Type 2 diabetes mellitus with hyperglycemia (principal); I13.11 Hypertensive heart and chronic kidney disease without heart failure, with stage 5 chronic kidney disease, or end stage renal disease; N18.6 End stage renal disease; K44.9 Diaphragmatic hernia without obstruction or gangrene; E11.22 Type 2 diabetes mellitus with diabetic chronic kidney disease; E87.5 Hyperkalemia; Z99.2 Dependence on renal dialysis; Z79.4 Long term (current) use of insulin; Z88.1 Allergy status to other antibiotic agents; Z88.5 Allergy status to narcotic agent
CPT/HCPCS: 36415; 36600; 71045; 80048; 80053; 82009; 82803; 83036; 83605; 83690; 84132; 84443; 84484; 85025; 93005; 94640; 96372; J1170; J1200; J2405; J2550; J3490; J7030

== ENCOUNTER 2021-06-20 16:09 | Inpatient (IN) | payer MEDICARE, OTHER ==
[~2021-06-20] VITALS: Ht 172.7 cm; Wt 74.8 kg
[2021-06-20 17:24] LABS: EOSINOPHIL 0.4 % (0-5); HGB 10.1 g/dl (12.5-16.0); LYMPHOCYTE 10.7 % (15-48); MCH 31.4 pg (25.0-31.0); MCHC 30.6 g/dL (32.0-36.0); MCV 102.5 fL (78.0-100.0); MONOCYTE 7.7 % (0-12); MPV 9.9 fL (6.0-9.5); NEUTROPHIL 79.4 % (41-80); NRBC 0; PLT 163 K/uL (150-400); RBC 3.22 M/uL (4.20-5.40); RDW 14.4 % (11.5-14.0); WBC 5.1 K/uL (4.0-10.5)
[2021-06-20 17:48] LABS: BUN/CREAT RATIO (CALC) 5.8 RATIO; CREATININE 3.99 mg/dL (0.51-0.95); POTASSIUM 6.4 mmol/L (3.5-5.1)
[2021-06-20 23:29] LABS: BUN/CREAT RATIO (CALC) 6.2 RATIO; CREATININE 4.21 mg/dL (0.51-0.95); POTASSIUM 5.9 mmol/L (3.5-5.1)
[2021-06-21 06:09] LABS: BASOPHIL 1.4 % (0-2); EOSINOPHIL 0.9 % (0-5); HCT 29.1 % (37.0-47.0); LYMPHOCYTE 16.5 % (15-48); MCH 32.3 pg (25.0-31.0); MCHC 30.9 g/dL (32.0-36.0); MCV 104.3 fL (78.0-100.0); MONOCYTE 10.4 % (0-12); MPV 10.1 fL (6.0-9.5); NEUTROPHIL 70.3 % (41-80); NRBC 0; PLT 178 K/uL (150-400); RBC 2.79 M/uL (4.20-5.40); RDW 14.3 % (11.5-14.0); WBC 5.8 K/uL (4.0-10.5)
[2021-06-21 06:42] LABS: ALBUMIN 2.7 g/dL (3.4-5.0); BILIRUBIN - TOTAL 0.7 mg/dL (0.2-1.0); BUN/CREAT RATIO (CALC) 6.4 RATIO; CREATININE 4.55 mg/dL (0.51-0.95); GLOBULIN (CALCULATION) 2.8 g/dL; POTASSIUM 6.5 mmol/L (3.5-5.1); TOTAL PROTEIN 5.5 g/dL (6.4-8.2)
--- NOTE | 2021-06-21 08:16 | NUR ---
0816 DR GARZA CALLED TO GIVE ORDERS FOR DIALYSIS. SEE THE CHART FOR DETAILS. 0831 NOTIFED [facility] OF THE NEW DIALYSIS ORDERS.
--- NOTE | 2021-06-22 02:36 | NUR ---
DAY SHIFT ON 06/21/21 GOT AN ORDER FOR DIALYSIS AND CALLED [facility] AT 8:30 AM WHO SAID THEY WOULD COME TODAY. DAYSHIFT CALLED [facility] LATER TO RECONFIRM THEY WERE STILL COMING WHICH THEY SAID THEY WERE COMING TONIGHT. THE METER TESTER PRIMARY NURSE CALLED AT 2300 AND WAS TOLD THEY WERE UNAWARE SHE WAS SUPOSSED TO GET IT TONIGHT AND SAID IT WON'T BE UNTIL THE MORNING UNTIL THEY COULD GET TO HER
[2021-06-22 06:02] LABS: BASOPHIL 2.1 % (0-2); EOSINOPHIL 5.9 % (0-5); HCT 31.8 % (37.0-47.0); HGB 9.8 g/dl (12.5-16.0); LYMPHOCYTE 26.7 % (15-48); MCH 31.5 pg (25.0-31.0); MCHC 30.8 g/dL (32.0-36.0); MCV 102.3 fL (78.0-100.0); MPV 9.5 fL (6.0-9.5); NEUTROPHIL 54.8 % (41-80); NRBC 0; PLT 206 K/uL (150-400); RBC 3.11 M/uL (4.20-5.40); RDW 14.2 % (11.5-14.0); WBC 5.7 K/uL (4.0-10.5)
[2021-06-22 06:22] LABS: BILIRUBIN - TOTAL 0.7 mg/dL (0.2-1.0); CREATININE 5.29 mg/dL (0.51-0.95); PHOSPHORUS 6.3 mg/dL (2.6-4.7); POTASSIUM 5.4 mmol/L (3.5-5.1)
--- NOTE | 2021-06-22 08:20 | NUR ---
0820 REPORTS INCREASED SHORTNESS OF AIR, PATIENT FOUND UP IN BED LEANING OVER THE BEDSIDE TABLE AND LOOKING IN SOME DISTRESS. REQUEST SOMETHING TO HELP WITH THE INCREASED BREATHING PROBLEMS. 0820 PRN BREATHING TREATMENT WAS GIVEN AT THIS TIME. WILL MONITOR FOR CHANGES. 0930 REPORTS THAT THE BREATHING TREATMENT HAS HELPED AND STARTING TO FEEL BETTER, WILL CONTINUE TO MONITOR FOR CHANGES.
== END 2021-06-22 21:20 | disposition other institution (70) | DRG 73 ==
LOC: EDBD 16:09 → FER 16:09 → FMS 06-21 01:31
PROVIDERS: Family Medicine; Nurse Practitioner; Nurse Practitioner Family; ADMIT Internal Medicine
DX: E11.43 Type 2 diabetes mellitus with diabetic autonomic (poly)neuropathy (principal); N18.6 End stage renal disease; I12.0 Hypertensive chronic kidney disease with stage 5 chronic kidney disease or end stage renal disease; E87.1 Hypo-osmolality and hyponatremia; K31.84 Gastroparesis; E11.22 Type 2 diabetes mellitus with diabetic chronic kidney disease; Z20.822 Contact with and (suspected) exposure to COVID-19; E87.5 Hyperkalemia; E03.9 Hypothyroidism, unspecified; Z99.2 Dependence on renal dialysis; Z86.73 Personal history of transient ischemic attack (TIA), and cerebral infarction without residual deficits; Z88.6 Allergy status to analgesic agent; Z88.1 Allergy status to other antibiotic agents
CPT/HCPCS: 36415; 36600; 80048; 80053; 82803; 82962; 84100; 85025; 96374; 96375; 96376; G0378; J0780; J1170; J1200; J1644; J2060; J2405; J2550; J7030; U0002

== ENCOUNTER 2021-07-14 19:29 | Emergency (ER) | payer MEDICARE, OTHER ==
[2021-07-14 20:53] LABS: BASOPHIL 1.5 % (0-2); EOSINOPHIL 0.7 % (0-5); HCT 28.3 % (37.0-47.0); HGB 8.8 g/dl (12.5-16.0); LYMPHOCYTE 15.2 % (15-48); MCH 31.4 pg (25.0-31.0); MCHC 31.1 g/dL (32.0-36.0); MCV 101.1 fL (78.0-100.0); MONOCYTE 9.2 % (0-12); MPV 10.4 fL (6.0-9.5); NEUTROPHIL 72.9 % (41-80); NRBC 0; PLT 217 K/uL (150-400); RDW 13.7 % (11.5-14.0); WBC 7.3 K/uL (4.0-10.5)
[2021-07-14 21:15] LABS: ALBUMIN 2.8 g/dL (3.4-5.0); BILIRUBIN - TOTAL 0.7 mg/dL (0.2-1.0); BUN/CREAT RATIO (CALC) 5.6 RATIO; CREATININE 5.4 mg/dL (0.51-0.95); GLOBULIN (CALCULATION) 3.1 g/dL; TOTAL PROTEIN 5.9 g/dL (6.4-8.2)
[2021-07-14 21:16] LABS: POTASSIUM 5.2 mmol/L (3.5-5.1)
== END 2021-07-14 21:45 | disposition home or self-care (01) ==
LOC: FER 19:29
PROVIDERS: Emergency Medicine
DX: E10.43 Type 1 diabetes mellitus with diabetic autonomic (poly)neuropathy (principal); K31.84 Gastroparesis; E10.22 Type 1 diabetes mellitus with diabetic chronic kidney disease; E10.40 Type 1 diabetes mellitus with diabetic neuropathy, unspecified; I12.0 Hypertensive chronic kidney disease with stage 5 chronic kidney disease or end stage renal disease; N18.6 End stage renal disease; Z99.2 Dependence on renal dialysis; Z88.1 Allergy status to other antibiotic agents; Z88.5 Allergy status to narcotic agent
CPT/HCPCS: 36415; 80053; 83690; 85025; J1200; J1630; J1642; J2405; J7030